=== PATIENT | female | born 1980 | race Caucasian/White ===

== ENCOUNTER 2021-10-16 08:12 | Outpatient (CLI) | payer BC ==
[2021-10-16 21:41] LABS: SARS-CoV-2 PCR by NAA Not Detected (NotDetected)
== END 2021-10-16 08:13 | disposition home or self-care (01) ==
LOC: LABBT 08:12
PROVIDERS: ATTEND Surgery
DX: Z20.822 Contact with and (suspected) exposure to COVID-19 (principal)
CPT/HCPCS: U0003; U0005

== ENCOUNTER 2021-10-19 07:40 | Outpatient (CLI) | payer BC | END 2021-10-19 07:41 | disposition home or self-care (01) | LOC: RAD 07:40 | PROVIDERS: ATTEND Surgery | DX: K21.9 Gastro-esophageal reflux disease without esophagitis (principal) | CPT/HCPCS: 74220 ==

== ENCOUNTER 2021-11-15 08:19 | Outpatient (CLI) | payer BC | END 2021-11-15 08:20 | disposition home or self-care (01) | LOC: LABBT 08:19 | PROVIDERS: ATTEND Surgery | DX: U07.1 COVID-19 (principal); E66.01 Morbid (severe) obesity due to excess calories | CPT/HCPCS: U0003; U0005 ==

== ENCOUNTER 2021-11-15 08:30 | Inpatient (IN) | payer OTHER ==
[2021-12-20 14:46] VITALS: BMI 39.2
[2021-12-25] MEDS ORDERED: Lidocaine 1% w/Epinephrine 1:100K 20 ML VIAL ONE (06:40)
[2021-12-25] MEDS ORDERED: Bupivacaine 0.25% 10 ML VIAL ONE (06:40)
[2021-12-25] MEDS ORDERED: SUGAMMADEX SODIUM 200 MG/2 ML VIAL ONE (06:56)
[2021-12-25] MEDS ORDERED: Ketamine 50 MG/ML (10ML VIAL) ONE (06:56)
[2021-12-25] MEDS ORDERED: fentaNYL Citrate/PF 100 MCG/2 ML SYRINGE ONE (06:56)
[2021-12-25] MEDS ORDERED: Scopolamine 1.5 mg/72 hour Patch ONE (07:12)
[2021-12-25] MEDS ORDERED: CEFAZOLIN 2 GM VIAL ONE (07:22)
[2021-12-25] MEDS ORDERED: Sodium Chloride 0.9% 100 ML ONE (07:22)
[2021-12-25] MEDS ORDERED: Heparin 5,000 UNITS/ML VIAL ONE (07:27)
[2021-12-25] MEDS ORDERED: Ketorolac Tromethamine 30 MG/ML VIAL ONE ×2 (07:38→11:35)
[2021-12-25] MEDS ORDERED: Glycopyrrolate 0.2 MG/ML 5 ML SYRINGE ONE (07:38)
[2021-12-25] MEDS ORDERED: Albuterol Sulfate HFA (OR ONLY) ONE (07:38)
[2021-12-25] MEDS ORDERED: Dexamethasone 20 MG/5 ML VIAL ONE (07:38)
[2021-12-25] MEDS ORDERED: PROPOFOL 200 MG/20 ML VIAL ONE (07:38)
[2021-12-25] MEDS ORDERED: Lidocaine 1% PF 5 ML VIAL ONE (07:38)
[2021-12-25] MEDS ORDERED: Ondansetron PF 4 MG/2 ML Vial ONE (07:38)
[2021-12-25] MEDS ORDERED: Rocuronium Bromide 10 MG/ML (10ML VIAL) ONE (07:38)
[2021-12-25] MEDS ORDERED: Ondansetron HCl/PF 4 MG/2 ML Vial IVP PRN (08:19)
[2021-12-25] MEDS ORDERED: Promethazine HCl 25 MG/ML VIAL IVPB PRN (08:19)
[2021-12-25] MEDS ORDERED: Promethazine HCl 25 MG/ML VIAL IM PRN ×5 (08:19→11:00)
[2021-12-25] MEDS ORDERED: Naloxone HCl 0.4 mg/ml Vial IV PRN ×3 (08:20→11:00)
[2021-12-25] MEDS ORDERED: diphenhydrAMINE 50 MG/ML VIAL IM PRN (08:20)
[2021-12-25] MEDS ORDERED: diphenhydrAMINE 50 MG/ML VIAL IVP PRN ×2 (08:20→10:14)
[2021-12-25] MEDS ORDERED: diphenhydrAMINE 25 MG CAP PO PRN ×3 (08:20→11:00)
[2021-12-25] MEDS ORDERED: fentaNYL Citrate/PF 2,000 MCG in Sodium Chloride 0.9% 60 ML IV PRN (08:20)
[2021-12-25] MEDS ORDERED: Ondansetron PF 4 MG/2 ML Vial IVP PRN ×4 (08:20→11:00)
[2021-12-25] MEDS ORDERED: Communication Order-Pharmacy FS SCH (08:30)
[2021-12-25] MEDS ORDERED: Fentanyl 100 MCG/2 ML VIAL ONE ×2 (10:05→11:00)
[2021-12-25] MEDS ORDERED: hydrALAZINE 20 MG/ML VIAL SLOW IVP PRN (10:14)
[2021-12-25] MEDS ORDERED: Hydrocodone-Acetamin 15 ML UDCUP PO PRN (10:14)
[2021-12-25] MEDS ORDERED: Dextrose 50% Abboject 50 ML SYRINGE SLOW IVP PRN (10:14)
[2021-12-25] MEDS ORDERED: Dextrose 5% in Water 1,000 ML IV PRN (10:14)
[2021-12-25] MEDS ORDERED: Fentanyl CADD 100 ML IVPB SCH ×2 (11:00)
[2021-12-25] MEDS ORDERED: diphenhydrAMINE 50 MG/ML VIAL IM/IV PRN ×2 (11:00)
[2021-12-25] MEDS ORDERED: Zolpidem Tartrate 5 MG TAB PO PRN ×2 (11:00)
[2021-12-25] MEDS ORDERED: D5 1/2 NS w/20 mEq KCL 1,000 ML ONE (11:35)
[2021-12-25] MEDS: Ketorolac Tromethamine 30 MG/ML VIAL IVP SCH ×2 (11:36→18:35)
[2021-12-25] MEDS: D5 1/2 NS w/20 mEq KCL 1,000 ML IV SCH ×2 (11:36→18:35)
[2021-12-25] MEDS ORDERED: Ketorolac Tromethamine 30 MG/ML VIAL IVP SCH (12:00)
[2021-12-26] MEDS: D5 1/2 NS w/20 mEq KCL 1,000 ML IV SCH (02:41)
[2021-12-26 05:52] LABS: Anion Gap 11 mmol/L (10-20); BUN (Urea Nitrogen) 9 mg/dL (7.0-18.7); Calc. Creatinine Clearance 190 mL/min (70-130); Calcium 8.4 mg/dL (7.8-10.44); Carbon Dioxide 21 mmol/L (22-29); Chloride 109 mmol/L (98-107); Estimated GFR 100; Glucose 120 mg/dL (70-105); Potassium 4.1 mmol/L (3.5-5.1); Sodium 137 mmol/L (136-145)
[2021-12-26] MEDS ORDERED: Hydrocodone-Acetamin 15 ML UDCUP PO PRN (06:26)
[2021-12-26 06:32] LABS: #Lymphocytes 1.4 thou/uL (1.20-3.40); #Monocytes 0.8 thou/uL (0.11-0.59); %Eosinophils 0.1 % (0.0-10.0); %Lymphocytes 12.6 % (21.0-51.0); %Monocytes 7.4 % (0.0-10.0); Hemoglobin 10.4 g/dL (12.0-16.0); MDiff Complete? YES; Mean Corpuscular HGB CONC 31.4 g/dL (32.0-36.0); Mean Corpuscular Hemoglobin 22.4 pg (27.0-31.0); Mean Corpuscular Volume 71.2 fL (78.0-98.0); Mean Platelet Volume 8.7 fL (7.4-10.4); Microcytosis MODERATE=15-30 cells (100X) (0-5/hpf); Platelet Count 295 thou/uL (130-400); Platelet Morphology Comment Appears Adequate; Polychromasia MODERATE = 3-4 cells (100X) (0-2/hpf); Red Blood Cell (RBC) Count 4.63 mill/uL (4.20-5.40); White Blood Cell (WBC) Count 11.2 thou/uL (4.8-10.8)
[2021-12-26 07:48] VITALS: BP 110/75; TEMP 98
[2021-12-26] MEDS ORDERED: Pantoprazole 40 MG VIAL IVP SCH (09:00)
[2021-12-26] MEDS ORDERED: Enoxaparin Sodium 40 MG/0.4 ML SYRINGE SC SCH (09:00)
== END 2021-12-26 11:18 | disposition home or self-care (01) | DRG 621 ==
LOC: SURG A 12-25 05:51
PROVIDERS: ADMIT Surgery; ATTEND Surgery
PROC: 0D164ZA Bypass Stomach to Jejunum, Percutaneous Endoscopic Approach (ICD-10-PCS; principal; 2021-12-25)
DX: E66.01 Morbid (severe) obesity due to excess calories (principal); K21.9 Gastro-esophageal reflux disease without esophagitis; Z68.41 Body mass index [BMI] 40.0-44.9, adult
CPT/HCPCS: 36415; 80048; 85025; 94760; C9113; J0690; J1100; J1644; J1650; J1885; J2405; J2704; J2710; J3010; J3480; J3490; S0020

== ENCOUNTER 2022-06-21 09:21 | Outpatient (CLI) | payer BC | END 2022-06-21 09:22 | disposition home or self-care (01) | LOC: BICMAMMO 09:21 | PROVIDERS: ATTEND Obstetrics & Gynecology | DX: Z12.31 Encounter for screening mammogram for malignant neoplasm of breast (principal) | CPT/HCPCS: 77063; 77067 ==

== ENCOUNTER 2022-12-10 07:35 | Outpatient (CLI) | payer BC | END 2022-12-10 07:36 | disposition home or self-care (01) | LOC: BICMRI 07:35 | PROVIDERS: ATTEND Specialist | DX: M51.17 Intervertebral disc disorders with radiculopathy, lumbosacral region (principal); M47.817 Spondylosis without myelopathy or radiculopathy, lumbosacral region | CPT/HCPCS: 72148 ==

== ENCOUNTER 2024-07-13 14:39 | Outpatient (CLI) | payer BC | END 2024-07-13 14:40 | disposition home or self-care (01) | LOC: BICMAMMO 14:39 | PROVIDERS: ATTEND Student in an Organized Health Care Education/Training Program | DX: Z12.31 Encounter for screening mammogram for malignant neoplasm of breast (principal) | CPT/HCPCS: 77063; 77067 ==